=== PATIENT | male | born 1985 | race Hispanic/Latino ===

== ENCOUNTER → 2022-04-20 13:47 | Outpatient (CLI) | payer OTHER, SELFPAY ==
--- NOTE | 2022-04-20 13:52 | DI.ECHO.S_ITS ---
[facility]---------+ [facility] +---------+ : : [address] : : : : [id number] : : : : Phone: [phone]+ Echocardiogram Report + + :Name: KATHY MELTON Study Date: 04/20/2022 Height: 71 in : :[facility] ReadingLocation: Weight: 177 lb : : Gender: Male BSA: 2.0 m2 : :: 1985 Age: 36 yrs BP: 109/71 mmHg: :Reason For Study: CHEST PAIN : :Ordering Physician: TIM, : :YESI Performed By: Jackie Sagastume : :Referring: YESI DUMONT : + + Interpretation Summary The left ventricle is normal in size. Left ventricular systolic function appears normal without focal wall motion abnormalities. The ejection fraction is estimated to be 55-60%. Diastolic parameters suggest probable normal left ventricular diastolic function and normal filling pressures. The right ventricle is normal in size and function. Pulmonary artery pressures cannot be estimated because of the lack of a measurable TR jet velocity. The left atrial size is normal. Right atrial size is normal. There is no significant valvular heart disease. The aortic root is normal size. Procedure: A two-dimensional transthoracic echocardiogram with color flow and Doppler was performed. The study quality was technically adequate. There is no prior echocardiogram noted for this patient. The patient was in sinus rhythm with heart rates between 65-80 bpm during the exam. Left Ventricle: The left ventricle is normal in size. There is normal left ventricular wall thickness. Left ventricular systolic function appears normal without focal wall motion abnormalities. The ejection fraction is estimated to be 55-60%. Diastolic parameters suggest probable normal left ventricular diastolic function and normal filling pressures. Right Ventricle: The right ventricle is normal in size and function. Atria: The left atrial size is normal. Right atrial size is normal. There is no Doppler evidence for an interatrial shunt. Mitral Valve: The mitral valve is normal in structure and function. There is no mitral regurgitation noted. Aortic Valve: The aortic valve is trileaflet. The aortic valve opens well. There is no aortic valve stenosis. No aortic regurgitation is present. Tricuspid Valve: The tricuspid valve is normal in structure and function. There is trace tricuspid regurgitation. Pulmonary artery pressures cannot be estimated because of the lack of a measurable TR jet velocity. Pulmonic Valve: The pulmonic valve leaflets are thin and pliable; valve motion is normal. There is no pulmonic valvular regurgitation. There is no significant valvular heart disease. Great Vessels: The aortic root is normal size. The dimensions of the ascending aorta are normal. The IVC is of normal diameter and collapses greater than 50% with a sniff. This suggests a low right atrial pressure of 3 mm Hg. Pericardium/ Pleura There is no pericardial effusion. There is no pleural effusion. MMode/2D Measurements & Calculations LVIDd: 5.6 cm LVOT diam: 2.0 cm LVIDs: 3.8 cm Ao root diam: 2.9 cm FS: 30.9 % asc Aorta Diam: 2.8 cm IVSd: 0.68 cm Ao Arch Diam (Prox Trans): 2.5 cm LVPWd: 0.66 cm LV murray. diameter/BSA (cm/m^2): 2.8 LV sys. diameter/BSA (cm/m^2): 1.9 LA A2 area: 16.8 cm2 RA long axis: 4.6 cm LA A4 area: 15.3 cm2 RA area: 13.6 cm2 LA length (vol): 4.8 cm RA vol: 34.5 ml LA vol: 45.3 ml RA : 17.2 ml/m2 LA vol index: 22.6 ml/m2 IVC diam: 1.5 cm RVD1 (basal): 3.5 cm RVD2 (mid): 2.7 cm TAPSE: 1.7 cm Doppler Measurements & Calculations Ao V2 max: 114.7 cm/sec LVOT Max Rishi: 91.9 cm/sec Ao V2 mean: 82.0 cm/sec LV V1 max P.4 mmHg Ao max P.3 mmHg LV V1 VTI: 18.7 cm Ao mean P.0 mmHg FAUZIA(I,D): 2.4 cm2 Ao V2 VTI: 23.4 cm FAUZIA(V,D): 2.4 cm2 sev ratio: 0.80 FAUZIA indexed to BSA (cm^2/m^2): 1.2 MV E max rishi: 71.8 cm/sec PA V2 max: 81.2 cm/sec MV A max rishi: 47.7 cm/sec PA V2 mean: 52.4 cm/sec MV E/A: 1.5 PA mean P.3 mmHg Med Peak E' Rishi: 13.1 cm/sec PA pr(Accel): 37.9 mmHg E/E' med: 5.5 Lat Peak E' Rishi: 18.0 cm/sec E/E' lat: 4.0 E/e' average: 4.7 MV dec time: 0.25 sec SV(LVOT): 56.8 ml Reading Physician:04:17 PM
--- NOTE | 2022-04-20 13:56 | DI.NM.S_ITS ---
PROCEDURE: NM EXERCISE TREADMILL NON NUC COMPARISON: None. INDICATIONS: Chest pain, unspecified FINDINGS: Rest ECG sinus rhythm. Bharat protocol 13:30, maximum heart rate 181 bpm (97% peak predicted), maximum blood pressure 152/60, 14.8 METS, WES 0%. Stress ECG sinus tachycardia, no ST segment changes or arrhythmias; isolated PVC with recovery. The patient complained of baseline left-sided chest pain that did not change with exercise. IMPRESSION: Low risk study. No evidence of exercise-induced ischemia or arrhythmia. Normal hemodynamic response to exercise. Average exercise capacity. Dictated by: Makayla Felix D.O. on 04/20/2022 at 16:20 Approved by: Makayla Felix D.O. on 04/20/2022 at 16:22
== END ==
PROVIDERS: Referring Provider Physician Assistant; Visit Provider Physician Assistant
DX: R07.9 Chest pain, unspecified (principal)
CPT/HCPCS: 93017; 93306

== ENCOUNTER → 2022-09-09 07:43 | Outpatient (CLI) | payer OTHER, SELFPAY ==
--- NOTE | 2022-09-09 | DI.MRI.S_ITS ---
PROCEDURE: MR HEAD/BRAIN WO/W CON INDICATIONS: Other hallucinations TECHNIQUE: Noncontrast axial T1 spin echo, axial T2 fast spin echo, sagittal and axial FLAIR, coronal T2 fast spin echo, axial gradient echo, axial diffusion and ADC through the brain. After the administration of contrast, axial and coronal and sagittal 3D VIBE or T1 spin echo with fat saturation through the brain. COMPARISON: None. FINDINGS: Image quality: Excellent. CSF Spaces: Basal cisterns are patent. No extra-axial fluid collections. Ventricles are normal in size and shape. Brain: No midline shift. No intracranial bleeds or masses. No abnormal intracranial enhancement. The brainstem appears normal. Diffusion-weighted images demonstrate no acute ischemic insults. No chronic ischemic insults. Normal intravascular flow voids are present. Skull and face: Calvarial marrow is normal in signal. Orbits appear normal. Sinuses: Sinuses and mastoids appear clear. IMPRESSION: Normal MRI of the brain with and without contrast Approved by: Alexis Pearson M.D. on 09/09/2022 at 16:27
== END ==
PROVIDERS: PCP Physician Assistant; Referring Provider Physician Assistant; Visit Provider Physician Assistant
DX: R44.2 Other hallucinations (principal)
CPT/HCPCS: 70553

== ENCOUNTER → 2022-12-22 19:39 | Outpatient (CLI) | payer OTHER, SELFPAY ==
--- NOTE | 2022-12-22 | DI.MRI.S_ITS ---
PROCEDURE: MR ANKLE RT WO CON INDICATIONS: pain in rt ankle TECHNIQUE: Noncontrast sagittal T1 spin echo and T2 fast spin echo with fat saturation, axial proton density fast spin echo and T2 fast spin echo with fat saturation, coronal T1 spin echo and T2 fast spin echo with fat saturation through the ankle/hindfoot. COMPARISON: None. FINDINGS: Image quality: Excellent. Bones and joints: No bone marrow contusions or fractures. No hindfoot coalitions. No osteochondral injuries of the talar dome. Mild spurring is seen at the dorsal talonavicular joint. Medial structures: The deep and superficial layers of the deltoid ligament appear intact. The spring ligament components are intact. The posterior tibialis, flexor digitorum longus, and flexor hallucis longus tendons are intact. The posterior tibial neurovascular bundle appears normal within the tarsal tunnel, without extrinsic mass effect. Lateral structures: The anterior talofibular, calcaneofibular, and posterior talofibular ligaments appear intact. The anterior and posterior tibiofibular ligaments appear intact. The peroneus longus and brevis tendons demonstrate normal location and morphology. Partial effacement of the normal fat signal in sinus tarsi is seen with thickening of the cervical ligament and the roots of the inferior extensor retinaculum. Anterior structures: The tibialis anterior, extensor hallucis longus, and extensor digitorum longus tendons appear intact. The dorsal talonavicular ligament appears mildly heterogeneous laterally. Posterior and plantar structures: Achilles tendon is intact. The proximal plantar fascia is intact. No abductor digiti quinti muscle atrophy to suggest Brar neuropathy. IMPRESSION: 1. Partial effacement of the sinus tarsi fat and mild thickening of the lateral sinus tarsi ligaments including the roots of the inferior extensor retinaculum, which is suspicious for ligamentous sprain. 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 2. Low-grade sprain of the dorsal talonavicular ligament. Mild chronic osseous spurring is seen at the dorsal talonavicular joint. Approved by: Curt Andersen M.D. on 12/23/2022 at 9:56
== END ==
PROVIDERS: PCP Physician Assistant; Referring Provider Physician Assistant; Visit Provider Physician Assistant
DX: M25.571 Pain in right ankle and joints of right foot (principal); S93.491A Sprain of other ligament of right ankle, initial encounter; M77.8 Other enthesopathies, not elsewhere classified
CPT/HCPCS: 73721

== ENCOUNTER → 2023-01-06 15:54 | Outpatient (CLI) | payer OTHER, SELFPAY ==
--- NOTE | 2023-01-06 | DI.MRI.S_ITS ---
PROCEDURE: MR CERVICAL SPINE WO CON INDICATIONS: Spinal stenosis, cervical region TECHNIQUE: Noncontrast sagittal T1 spin echo and T2 fast spin echo, sagittal STIR, foraminal oblique sagittal T2 fast spin echo, and axial gradient echo or T2 fast spin echo through the cervical spine. COMPARISON: None. FINDINGS: Image quality: Excellent. Alignment and Curvature: There is normal bony alignment. Bone Marrow: Marrow demonstrates normal overall signal. Spinal Cord: Visualized spinal cord has normal size and signal. No cerebellar tonsillar herniation. Paraspinous Soft Tissues: No paravertebral masses. Prevertebral soft tissues are normal in thickness. C2-C3: Mild disc desiccation. Mild disc bulge. Mild bilateral foraminal stenosis. No canal stenosis. C3-C4: Mild disc desiccation and height loss. Broad-based disc bulge. Effacement of the CSF space with moderate canal stenosis. Severe bilateral foraminal stenosis. C4-C5: Moderate disc desiccation and height loss. Posterior disc bulge. Severe canal stenosis. Severe foraminal stenosis. Flattening of the anterior aspect of the cord. No cord signal abnormality. C5-C6: Moderate disc desiccation and height loss. Broad-based disc bulge. Effacement of the CSF space with severe canal stenosis. Severe bilateral foraminal stenosis. Flattening of the anterior aspect of the cord without cord signal abnormality. C6-C7: Moderate disc desiccation and height loss. Broad-based disc bulge. Mild canal stenosis. Moderate right and severe left foraminal stenosis. C7-T1: Mild disc desiccation and height loss. Mild disc bulge. No canal stenosis. Moderate right and mild left foraminal stenosis. IMPRESSION: 1. Multilevel disc desiccation, height loss, and broad-based disc bulges with resultant severe canal stenosis at C4-5 and C5-6 and mild canal stenosis at C6-7. 2. Severe bilateral foraminal stenosis at C3-4, C4-5, C5-6, and on the left at C6-7. 3. Moderate right foraminal stenosis at C6-7 and C7-T1. 4. Multilevel flattening of the anterior aspect of the cord secondary to disc bulges and canal stenosis. No abnormal cord signal. Dictated by: Nika Bach M.D. on 01/06/2023 at 17:41 Approved by: Nika Bach M.D. on 01/06/2023 at 17:54
== END ==
PROVIDERS: PCP Physician Assistant; Referring Provider Physical Medicine & Rehabilitation Pain Medicine; Visit Provider Physical Medicine & Rehabilitation Pain Medicine
DX: M48.02 Spinal stenosis, cervical region (principal); M50.31 Other cervical disc degeneration, high cervical region
CPT/HCPCS: 72141

== ENCOUNTER 2023-07-11 08:20 | Inpatient (IN) | payer OTHER, SELFPAY ==
[2023-06-29 13:55] VITALS: BMI 31.5
[2023-07-11] VITALS (12 sets, daily range): BP systolic 116–138; BP diastolic 60–87; PULSE 68–91; RESP 12–18; TEMP 36.2–37.4; O2SAT 90–98; BMI 30.8
[2023-07-11] MEDS: LACTATED RINGERS 1,000 ML 42 ML IV ×2 (09:11→11:22)
--- NOTE | 2023-07-11 09:39 | PM.PREOP ---
Pre-operative Note Interval Note History & Physical reviewed/Exam performed by Physician: Yes Changes to H&P: No
[2023-07-11] MEDS: CEFAZOLIN 2 GM/100 ML PREMIX 100 ML IV ×3 (10:18→23:51)
--- NOTE | 2023-07-11 10:36 | SUR.OPER ---
Supine, head on gel donut. Arms padded with gel pads, tucked at sides, towel roll under shoulders. Safety belt at thigh. Legs uncrossed.
[2023-07-11] MEDS: BUPIVACAINE 0.25% (PF) 10 ML, EPINEPHrine 0.15 MG INJ (12:20)
--- NOTE | 2023-07-11 12:28 | DI.RAD.S_ITS ---
PROCEDURE: XR CERVICAL SPINE 2V OR 3V INDICATIONS: C5-6, C6-7 ACDF TECHNIQUE: 3 view(s) of the cervical spine were acquired. COMPARISON: None. FINDINGS: ACDF C5-C7. Endotracheal tube. IMPRESSION: Intraoperative guidance provided. Dictated by: Esteban García M.D. on 07/11/2023 at 13:46 Approved by: Esteban García M.D. on 07/11/2023 at 13:47
--- NOTE | 2023-07-11 12:29 | PM.OP.1 ---
Operative Date/Time/Diagnoses Date of procedure: 07/11/23 Time of procedure: 10:00 Pre-op diagnosis: 1. C5-6, C6-7 spinal stenosis 2. Cervical radiculopathy Post-op diagnosis: same Procedure & Clinicians Procedure: 1. C5-6 C6-7 anterior cervical diskectomy and fusion 2. C5-6 C6-7 anterior interbody cage placement 3. C5-6 C6-7 anterior instrumentation with plate and screw placement in C5-C6 and C7 vertebrae 4. Utilization of microsurgical technique and operating microscope Same procedure as scheduled: Yes Indications: Patient has been having chronic neck pain and worsening cervical radiculopathy. Patient was found to have significant cervical spinal stenosis at C5-6 C6-7 level correlating with patient's symptoms. Patient failed multiple conservative management with worsening pain weakness and numbness in his upper extremity. Patient has been having difficulty performing activity of daily living. After discussing risks benefits of treatment options, patient elected proceed with surgery. Surgeon: Maryellen Valles [employer] Supervisor: Maria De Jesus Deras Yes if Unassisted: No Anesthesia Type: General Operative Notes Closure Type: primary Specimen(s): none sent Prosthetic devices, grafts, tissues, transplants, or devices: Globus Extend Plate, Hedron C cages Estimated Blood Loss (mL): 5 Blood products transfused: none Procedure in detail: Patient was seen in the preoperative area. Risks and benefits of the surgery was discussed with the patient. Operative consent was obtained and placed in the chart. Patient was then taken to the operative room. Prophylactic antibiotic was given less than 0.5 hr prior to skin incision. General anesthesia was administered. Patient was placed into a supine position on her radiolucent table. Bilateral shoulders were taped down to allow proper C-arm imaging. Anterior cervical area was prepped and draped in a sterile fashion. Time-out was performed at this time. Using lateral C-arm imaging, the level between C5 and C7 was identified and marked on patient's neck. A oblique incision from midline towards medial border of sternocleidomastoid muscle was made. The platysma muscle was incised in line with skin incision. Metzenbaum scissor was used to develop the plane between the medial border of sternocleidomastoid d and the strap muscles medially. The carotid sheath and its contents were identified and protected behind the hand-held retractor during the entire case. The plane between the carotid sheath and strap muscles was developed with Metzenbaum scissors. Dissection was made down to the level of the anterior cervical fascia. Longus colli muscle was incised on the anterior aspect of vertebral bodies bilaterally from C5-C7. Spinal needle was placed into the C5-6 disc space and confirmed with lateral C-arm imaging. Using microsurgical technique and operative microscope, anterior cervical diskectomy was performed at C5-6 and C6-7 level. This was done by removing the disc material, removing the anterior and posterior osteophytes posterior longitudinal ligaments along with performing bilateral foraminotomies at both levels. Patient was found to have severe central and foraminal stenosis at both levels. Patient's stenosis was fully decompressed after decompression was completed. After the diskectomy was completed, 2 anterior interbody cages were obtained. The cages were packed with DBM bone grafting material. One cage each along with the bone grafting material was then packed into the interbody spaces from C5-C7 with one cage into each interbody level. After the cages were placed, the anterior cervical plate was stabilized to the C5-C7 vertebrae using 2 screws at each each level. Total 6 screws were placed. After confirming placement of the hardware with AP and lateral C-arm imaging, the screws were locked into the plate using the locking mechanism and torque limiting screwdriver. After the hardware was placed and confirmed with AP and lateral C-arm imaging, the wound was irrigated with sterile normal saline. The platysma muscle and the subcutaneous tissue was closed with 2-0 Vicryl. The skin was closed with 4-0 Monocryl and Steri-Strips. Patient tolerated the procedure well. Patient was transferred recovery room in stable condition. There were no complications. The Operation could not have been safely performed without compromising the technical result or length of the procedure, without the assistance of a skilled certified ophthalmic surgical assistant. The certified ophthalmic surgical assistant was medically necessary for proper positioning, retraction and manipulation of instruments, proper exposure, surgical preparation, and manipulation of tissue. Complications: none Post-operative Condition: stable Disposition: PACU Plan for aftercare: Admit to inpatient hospital
[2023-07-11] MEDS: HYDROMORPHONE 1 MG INJ IV ×2 (12:44→12:55)
[2023-07-11] MEDS: hydrOXYzine 50 MG/ML INJ 25 MG IM (12:45)
[2023-07-11] MEDS: fentaNYL 100 MCG/2 ML INJ IV (12:49)
[2023-07-11] MEDS: OXYCODONE IR 5 MG TABLET PO ×3 (12:55→23:51)
[2023-07-11] MEDS: methocarbamoL 500 MG TABLET 750 MG PO (12:56)
[2023-07-11] MEDS: ACETAMINOPHEN 325 MG TABLET 650 MG PO (12:56)
[2023-07-11] MEDS: HYDROMORPHONE 0.5 MG INJ IV (13:55)
[2023-07-11] MEDS: LACTATED RINGERS 1,000 ML 125 ML IV (13:57)
--- NOTE | 2023-07-11 16:21 | OT.IP.EVAL ---
Current Diagnoses Spinal stenosis, cervical region (07/11/23) Radiculopathy, cervical region (07/11/23) Surgery Performed Operation Date: 07/11/23 10:15 Actual Procedures p C5-6, C6-7 ACDF with anterior instrumentation - Maryellen Valles MD Past Medical History (Last Updated 06/29/23 @ 14:45 by Nmeo Velez, RN) Anxiety Cervical radiculopathy Depression History of COVID-19 (~2020) Insomnia MANUELITO on CPAP RLS (restless legs syndrome) Schizoid personality disorder Spinal stenosis, cervical region Surgical History (Last Updated 06/29/23 @ 14:11 by Nemo Velez, RN) History of surgery [place] teeth removed Occupational Therapy Inpatient Evaluation/Re-Eval M1 PT/OT-IP Prior Functional Status Start: 07/11/23 16:19 Freq: NEEDED Status: Active Protocol: Document 07/11/23 16:19 CGR (Rec: 07/11/23 16:27 CGR [id number]) Medical Review Prior Functional Status Medical History Reviewed Yes Communication Pt is an effective verbal communicator. Mobility and Gait Pt was IND at baseline without AD. Activities of Daily Living and IADL's Pt was IND with all ADLs and is active [employer] Social History Household Members family Living Arrangements Apartment/Condo Number of Floors (Floors) One Floor Number of Stairs To Enter/Railing? no steps to enter Home Environment Standard Height Toilet,Tub/ Shower Home Equipment Crutches Employment Status Active Duty Additional Social History Comment Pt states that his brother is living with him and will help if needed. M2 OT-IP Current Condition Start: 07/11/23 16:19 Freq: Status: Active Protocol: Document 07/11/23 16:19 CGR (Rec: 07/11/23 16:27 CGR [id number]) Occupational Therapy Current Condition Current Condition Evaluation Date 07/11/23 Treatment Diagnosis c5-c6 ACDF Diagnosis Onset Date 07/11/23 Post Operative Precautions Cervical Spine Precautions Soft Collar for Comfort,No Heavy Lifting,Log Roll M3 OT- IP Subjective and Pain Start: 07/11/23 16:19 Freq: Status: Active Protocol: Document 07/11/23 16:19 CGR (Rec: 07/11/23 16:27 CGR [id number]) OT- Subjective Occupational Therapy Visit Type Type Initial Evaluation Visit Start Time 15:50 Visit Stop Time 16:21 Notes Pt's GF present throughout session. OT Pain Assessment Pain When Pain Assessed At Rest Pain Present Pain Present Pain Reported Location Neck Intensity 4 Scale Used Numeric (0 - 10) Management Techniques Modification of Treatment,Re- positioning M4 OT- IP ADL's Start: 07/11/23 16:19 Freq: Status: Active Protocol: Document 07/11/23 16:19 CGR (Rec: 07/11/23 16:27 CGR [id number]) OT [id number] Comments OT Self-Feeding Comments not meal time OT ADL-Grooming General Evaluation Grooming Ability Independent Areas Needing Assistance Face Washing Comments OT Grooming Comments standing at sink OT ADL-Oral Care General Eval Oral Care Ability Independent Areas of Assistance Brushing Teeth Comments Oral Care Comments standing a sink OT ADL-Dressing General Eval Lower Body Dressing Ability Independent Areas Needing Assistance Socks OT ADL-Toileting General Evaluation Toileting Ability Independent Comments OT Toileting Comments pt urinated seated on toielt per therapist request given how sleepy pt was. OT ADL-Bathing Comments OT Bathing Comments not performed M5 OT- IP IADL's Start: 07/11/23 16:19 Freq: Status: Active Protocol: Document 07/11/23 16:19 CGR (Rec: 07/11/23 16:27 CGR [id number]) OT-Instrumental Activities of Daily Living Deficits IADL Deficits Identified No Deficits Home Safety Awareness Awareness of Need for Assistance at Home Good Awareness Ability to Problem Solve Emergency Able to Problem Solve Situations Medication Management Medication Management No Deficits Identified Money Management Money Management No Deficits Identified Meal Preparation Meal Preparation No Deficits Identified Sales Enablement Analyst Sales Enablement Analyst No Deficits Identified Driving Driving 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 OT- IP Functional Cognition Start: 07/11/23 16:19 Freq: Status: Active Protocol: Document 07/11/23 16:19 CGR (Rec: 07/11/23 16:27 CGR [id number]) Cognitive Factors Limiting Selfcare Function Cognitive Ability Level of Alertness Alert Patient Orientation Name,Age,Birthday,Month,Date, Year,Day of Week,Place, Situation Attention Span Ability Capable of Focused Attention, Capable of Sustained Attention Ability to Follow Commands Able to Follow Multi-Step Commands OT- Vision and Hearing OT- Hearing Assessment OT- Hearing Assessment WFL OT- Vision Assessment Visual Attentiveness WFL Occular Pursuits WFL Visual Convergence WFL M7 OT- IP Mobility and Balance Start: 07/11/23 16:19 Freq: Status: Active Protocol: Document 07/11/23 16:19 CGR (Rec: 07/11/23 16:27 CGR [id number]) OT- Bed Mobility Assessment Rolling Type of Rolling Log Rolling,Roll to Left Level of Assistance Independent Supine to Sit Supine to Sit Assist Independent Scooting Scooting to Edge of Bed Independent OT-Transfer Assessment Sit to and From Stand Sit to and from Stand Independent Transfers Transfer Ability Independent Technique Transfer Destination Bed,Chair,Toilet Transfer Technique Stand Step Pivot Devices Transfer Assistive Devices None OT- Balance Assessment Sitting Balance and Reactions Static Sitting Balance Ability Normal Dynamic Sitting Balance Ability Normal M8 OT- IP Objective Assessments Start: 07/11/23 16:19 Freq: Status: Active Protocol: Document 07/11/23 16:19 CGR (Rec: 07/11/23 16:27 CGR [id number]) OT Gross Range of Motion Upper Extremity Range of Motion Assessment Within Functional Limits OT Strength Upper Extremity Strength Assessment Within Functional Limits OT- Coordination Assessment Upper Extremity Finger to Nose Test Within Functional Limits Finger Tapping Test Within Functional Limits OT-Muscle Tone Assessment Muscle Tone WNL Yes OT Sensation Assessment Edema Edema Absent M9 OT- IP Assessment and Plan Start: 07/11/23 16:19 Freq: Status: Active Protocol: Document 07/11/23 16:19 CGR (Rec: 07/11/23 16:27 CGR [id number]) OT Summary Assessment and Plan Potential Rehabilitation Potential Excellent Analytic Complexity at Evaluation Low Summary OT Impairments Pain Progress Towards Goals Safe For Discharge,Goals Met Assessment Summary Pt presents as a low complexity evaluation s/p admit for ACDF. Pt participated with OT and is performing ADLs at baseline level of IND. No further OT needs. Recommend d/c home. Frequency of Treatment Frequency Of Treatment Discharge Discharge Recommendations OT Discharge Recommendations Home Transportation Needs at Discharge Private Vehicle
[2023-07-11] MEDS: SENNOSIDES 8.6 MG TABLET 17.2 MG PO (21:06)
[2023-07-11] MEDS: DOCUSATE 100 MG CAPSULE PO (21:06)
[2023-07-12 00:40] VITALS: BP 121/79; PULSE 85; RESP 18; TEMP 37.1; O2SAT 95
[2023-07-12 05:25] VITALS: BP 124/76; PULSE 74; RESP 18; TEMP 37.4; O2SAT 95
[2023-07-12] MEDS: OXYCODONE IR 5 MG TABLET PO ×2 (07:00→09:55)
--- NOTE | 2023-07-12 07:41 | P.DS_ITS ---
History of Present Illness History of Present Illness Date Patient Seen: 07/12/23 Time Patient Seen: 07:41 Chief complaint: Neck pain Narrative: Patient states his pain is hxvi-an-fnyopvoa. He worked with physical therapy yesterday evening. He has assistance at home. No difficulty swallowing. He has been up out of bed. Otherwise without complaints. Discharge Providers Provider Date of admission: 07/11/23 08:20 Discharge Date: 07/12/23 Primary care physician: Kaushal Reyes PA-C Consults: 07/11/23 13:21 Consult to Occupational Therapy Evaluate & Treat Comment: Physician Instructions: Evaluate and treat Consult to Physical Therapy Evaluate & Treat Comment: Physician Instructions: Evaluate and Treat Discharge provider: Adam Bennett PA-C Summary Hospital Course Discharge Diagnosis: 1. C5-6, C6-7 spinal stenosis 2. Cervical radiculopathy Hospital Course: 1. C5-6 C6-7 anterior cervical diskectomy and fusion 2. C5-6 C6-7 anterior interbody cage placement 3. C5-6 C6-7 anterior instrumentation with plate and screw placement in C5-C6 and C7 vertebrae 4. Utilization of microsurgical technique and operating microscope Same procedure as scheduled: Yes Indications: Patient has been having chronic neck pain and worsening cervical radiculopathy. Patient was found to have significant cervical spinal stenosis at C5-6 C6-7 level correlating with patient's symptoms. Patient failed multiple conservative management with worsening pain weakness and numbness in his upper extremity. Patient has been having difficulty performing activity of daily living. After discussing risks benefits of treatment options, patient elected proceed with surgery. Surgeon: Maryellen Valles Thread Spinner: Maria De Jesus Soto Click Yes if Unassisted: No Anesthesia Type: General Operative Notes Closure Type: primary Specimen(s): none sent Prosthetic devices, grafts, tissues, transplants, or devices: Globus Extend Plate, Hedron C cages Estimated Blood Loss (mL): 5 Blood products transfused: none Patient admitted to the hospital for the above-mentioned procedure. Patient consented to the same. Patient underwent C5-C6 C6-C7 fusion July 11, 2023. Patient worked with physical therapy yesterday evening. Patient has assistance at home. Patient will be discharged home today in stable condition. Multimodal pain management, soft collar for comfort, keep dressing clean and dry. Exam Vital Signs (past 8 hours): - 07/12/23 00:40 07/12/23 05:25 Temperature 98.8 F 99.3 F Pulse Rate 85 74 Respiratory Rate 18 18 Blood Pressure 121/79 124/76 Pulse Oximetry 95 95 Oxygen Flow Rate 0 0 Oxygen Delivery Method CPAP Oxygen Flow Rate 0 Narrative Exam Narrative: Pleasant 37-year-old male who walking in room in no apparent distress. Collar is in place. Dressing clean, dry and intact. Motor functions intact with good strength bilaterally. Sensation grossly intact to light touch bilateral upper extremities. Const General: cooperative and comfortable Nutritional Appearance: average body habitus Orientation: alert Resp Effort & Inspection: normal respiratory effort and able to speak in complete sentences [facility] Medical History (Updated 06/29/23 @ 14:45 by Nemo Velez RN) Schizoid personality disorder History of COVID-19 (~2020) Insomnia Anxiety Depression MANUELITO on CPAP RLS (restless legs syndrome) Cervical radiculopathy Spinal stenosis, cervical region Surgical History (Updated 06/29/23 @ 14:11 by Nemo Velez RN) [place] teeth removed History of surgery Social History household members: family Smoking Status: Former smoker alcohol intake: former Discharge Assessment & Plan Assessment and Plan Assessment: Patient progressing as expected Plan of Treatment: Multimodal pain management Soft collar for comfort Keep dressing clean and dry Limit bending, twisting, lifting Discharge home today in stable condition Discharge Plan Discharge Plan Patient Disposition: Home Discharge orders & Medications Prescriptions: New acetaminophen 325 mg Tablet 650 mg PO Q6H PRN (Reason: Fever/Mild Pain (1-3)) Qty: 60 0RF oxycodone 5 mg Tablet 5 mg PO Q3H PRN (Reason: Pain, Moderate (4-6)) Qty: 30 0RF Continued fluoxetine [Prozac] 40 mg Capsule 40 mg PO DAILY sildenafil 50 mg Tablet 50 mg PO DAILY PRN (Reason: Sexual Activity) Rx Instructions: administer 30 minutes to 4 hours before activity Follow up/Referrals: Kaushal Reyes PA-C [Primary Care Provider] - Maryellen Valles MD [Physician] - 07/27/23 3:10 pm (Follow up w/ Adam Bennett PA-C, at [facility] office in [place].) Diet/Activity/Treatments Diet: Diet as Tolerated Diet comment: Start with soft foods that are easy to swallow. Activity: Soft collar is for comfort only; you do not need to wear it. Many people feel more comfortable wearing it when they are sitting or standing for long periods of time; some people feel more comfortable wearing it while sleeping. No lifting more than 10 pounds. Cold/Heat Therapy: Heating pad to back of neck/between shoulder blades as needed for pain. Skin/Wound/Dressing Care Report to your healthcare provider any signs of infection, such as:: chills, fever, night sweats, unusual drainage and unusual redness Dressing: May shower. If dressing becomes wet inside, remove but leave steri strips in place until follow up in office. Visit Report/Discharge Packet Instructions: DI for Prescription Opioid Use, DI for Anterior Cervical Discectomy and Fusion Stand Alone Forms: Patient Portal/API, Stroke Signs & Symptoms, Surgery Discharge Discharge Data Primary Care Provider: Kaushal Reyes VTE Deep Vein Thrombosis/Pulmonary Embolism Present on Admission: No
[2023-07-12 07:57] VITALS: BP 125/80; PULSE 69; RESP 18; TEMP 37.1; O2SAT 97
[2023-07-12] MEDS: FLUoxetine 20 MG CAPSULE 40 MG PO (08:16)
--- NOTE | 2023-07-12 09:20 | PT.IIE ---
Current Diagnoses Spinal stenosis, cervical region (07/11/23) Radiculopathy, cervical region (07/11/23) Surgery Performed Operation Date: 07/11/23 10:15 Actual Procedures p C5-6, C6-7 ACDF with anterior instrumentation - Mrayellen Valles MD Surgical History (Last Updated 06/29/23 @ 14:11 by Nemo Velez, RN) History of surgery [place] teeth removed Medical History (Last Updated 06/29/23 @ 14:45 by Nemo Velez RN) Anxiety Cervical radiculopathy Depression History of COVID-19 (~2020) Insomnia MANUELITO on CPAP RLS (restless legs syndrome) Schizoid personality disorder Spinal stenosis, cervical region Physical Therapy Inpatient Evaluation/Re-Eval M1 PT/OT-IP Prior Functional Status Start: 07/11/23 16:19 Freq: NEEDED Status: Discharge Protocol: Document 07/11/23 16:19 CGR (Rec: 07/11/23 16:27 CGR [id number]) Medical Review Prior Functional Status Medical History Reviewed Yes Communication Pt is an effective verbal communicator. Mobility and Gait Pt was IND at baseline without AD. Activities of Daily Living and IADL's Pt was IND with all ADLs and is active duty [email or web address] Social History Household Members family Living Arrangements Apartment/Condo Number of Floors (Floors) One Floor Number of Stairs To Enter/Railing? no steps to enter Home Environment Standard Height Toilet,Tub/ Shower Home Equipment Crutches Employment Status Active Duty Additional Social History Comment Pt states that his brother is living with him and will help if needed. M1 PT/OT-IP Prior Functional Status Start: 07/12/23 13:23 Freq: NEEDED Status: Active Protocol: Document 07/12/23 09:20 AB (Rec: 07/12/23 13:32 AB [id number]) Medical Review Prior Functional Status Communication able to make needs known Mobility and Gait pt stated that he was independent with all mobilities and ambulation without AD Activities of Daily Living and IADL's Per OT note: Pt was IND with all ADLs and is active duty [email or web address] Social History Household Members family Living Arrangements Apartment/Condo Number of Floors (Floors) One Floor Number of Stairs To Enter/Railing? 1 step to enter the house Home Environment Standard Height Toilet,Tub/ Shower Home Equipment Crutches,Grab Bars In Shower Employment Status Active Duty Additional Social History Comment Pt states that his brother is living with him and will help if needed. M2 PT-IP Current Condition Start: 07/12/23 13:23 Freq: NEEDED Status: Active Protocol: Document 07/12/23 09:20 AB (Rec: 07/12/23 13:32 AB [id number]) Physical Therapy Current Condition Current Condition Evaluation Date 07/12/23 Treatment Diagnosis s/p C5-6, C6-7 ACDF; difficulty in walking Onset Date 07/11/23 M3 PT-IP Subjective Start: 07/12/23 13:23 Freq: NEEDED Status: Active Protocol: Document 07/12/23 09:20 AB (Rec: 07/12/23 13:32 AB [id number]) Subjective Physical Therapy Visit Type Type Initial Evaluation Visit Start Time 09:20 Visit Stop Time 09:45 Number of SCABBLER Visits 0 Physical Therapy Visit Comments Patient Comments agreeable to do PT Therapy Pain Assessment Pain When Pain Assessed At Rest Pain Present Pain Present Pain Reported Location Neck Intensity 1 Scale Used increases to 6/10 with mobility Pain Management Techniques Distraction,Modification of Treatment,Re-positioning, Timing of Activity with Medications M4 PT-IP Mobility and Gait Start: 07/12/23 13:23 Freq: NEEDED Status: Active Protocol: Document 07/12/23 09:20 AB (Rec: 07/12/23 13:32 AB [id number]) PT-Bed Mobility Assessment Rolling Type of Rolling Log Rolling Level of Assist Standby Assistance Supine to Sit Supine to Sit Standby Assistance Sit to Supine Sit to Supine Standby Assistance PT-Transfer Assessment Sit to and From Stand Sit to and from Stand Standby Assistance Equipment Transfer Assistive Device None,Gait Belt Orthotic/Prosthetic Devices or Brace: Yes Transfers Transfer Destination Chair Transfer Technique ambulated Transfer Ability Level of Assist Independent Comments Mobility Comments pt supine in bed. pt's GF in room. obtained PLOF and home set up from pt. pt able to recall his cervical precautions. completed log roll supine supine to sit SBA. sit to stand SBA and ambulated in room without AD SBA. stand by sink and educated on soft collar management. pt able to don/ doff soft collar by himself. pt agreed to ambulate out in the hallway and completed ~ 250 ft without AD SBA. pt completed up/down platform step without AD SBA. repeated x 2 sets. pt ambulated back to his room without AD SBA. sat on the chair. call light and table placed within reach. pt without further concerns. Gait Assessment Gait Gait Assistance Required: Standby Assistance Distance (Feet) 250 Able to Maintain Weight Bearing Status Yes During Gait Assistive Devices Assistive Device None,Gait Belt Orthotic/Prosthetic Devices or Brace: Yes Gait Deviations General Gait Pattern Decreased Stride Length, Decreased Feet Clearance Factors Limiting Gait Function Factors Limiting Gait Function Decreased Activity Tolerance, Decreased Strength,Limited Range of Motion,Pain,Poor Balance,Poor Safety Awareness Stair Climbing Assessment Evaluation Level of Assist On Stairs Standby Assistance Devices Stair Climbing Assistive Devices None Technique/Endurance Stair Climbing Direction Ascend and Descend Stair Climbing Technique Step to Step Number of Steps Climbed 1 Query Text: Stair Climbing Set # Repetitions (reps) 2 PT-Balance Assessment Sitting Balance and Reactions Static Sitting Balance Ability Normal Dynamic Sitting Balance Ability Normal Standing Balance and Reactions Static Standing Balance Ability Good Dynamic Standing Balance Ability Good Device Used without AD M5 PT-IP Objective Assessments Start: 07/12/23 13:23 Freq: NEEDED Status: Active Protocol: Document 07/12/23 09:20 AB (Rec: 07/12/23 13:32 AB [id number]) Orientation Orientation/Cognition Level of Alertness Alert Orientation Name,Age,Birthday,Month,Date, Year,Day of Week,Place, Situation Language Function Ability No Deficits Noted Safety Awareness Understands Safety Issues Memory Description No Deficits Noted Gross Range of Motion Lower Extremity ROM Assessment Within Functional Limits Strength Lower Extremity Strength Assessment Within Functional Limits Muscle Tone Muscle Tone WNL Yes M6 PT-IP Treatment Start: 07/12/23 13:23 Freq: NEEDED Status: Active Protocol: Document 07/12/23 09:20 AB (Rec: 07/12/23 13:32 AB [id number]) Physical Therapy Treatment Education Education Provided Precautions,Weight Bearing Status,Safety M7 PT-IP Assessment and Plan Start: 07/12/23 13:23 Freq: NEEDED Status: Active Protocol: Document 07/12/23 09:20 AB (Rec: 07/12/23 13:32 AB [id number]) PT Summary Assessment and Plan Potential Rehabilitation Potential Good Status of Condition at Evaluation Stable Summary Impairments Pain,ROM,Strength,Balance, Coordination,Bed Mobility, Transfers,Gait,Activity Tolerance Assessment Summary pt is a 37 y/o M s/p C 5-6, 6- 7 ACDF POD 1. pt has cervical precautions. pt requiring SBA with mobility and plans to go home with his brother to assist him if needed. pt may go home when medically stable. Goals Bed Mobility Goal Independent Transfer Goal Independent Gait Goal Independent Gait Distance 300 Other Goals up/down 1 step without AD mod I Days to Meet Goals 5 Frequency of Treatment Frequency Of Treatment Twice a Day Treatment Plan Physical Therapy Treatment Plan Bed Mobility Training,Transfer Training,Gait Training, Therapeutic Exercise,Balance Retraining,Post Op Education, Discharge Planning,Hot or Cold Pack,Neuromuscular Re-ed, Coordination Retraining,Manual Therapy Precautions Cervical Spine Precautions Soft Collar for Comfort,No Heavy Lifting,Log Roll Recommendations To Nursing Amount of Assist Needed Standby Assistance Discharge Recommendations PT Discharge Recommendations Home with Assistance Transportation Needs at Discharge Private Vehicle
[2023-07-12] MEDS: DOCUSATE 100 MG CAPSULE PO (09:56)
--- NOTE | 2023-07-12 10:44 | PC.NURSE ---
Patient is A&OX4, VSS, afebrile on RA. The dressing on his anterior neck is C/D/I covered with soft collar. He reports pain level is tolerable with prn oxycodone and tylenol. He is cleared for discharge today by PA and PT. He verbalizes understanding of discharge medications,activity, site care, s.sx of infection as well as the follow up appointment post op with MD SIMS. He is escorted by RN to private vehicle with his significant other this a.m. at 1015. They have all of their personal belongings including CPAP machine.
--- NOTE | 2023-07-12 13:32 | CM.DANOTE ---
Brief DCP Assessment Note Pt is a 37yo M POD1 following cervical surg with Dr. Valles on 07.11.23. PCP Kaushal Reyes Paykailash silveira and self pay BOTTOM WHEELER reviewed EMR. Per chart review, pt is active duty. Lives in [place], brother currently living with him. Is active/indep at baseline. Per PT/OT evals, cleared for home. Per RN report, no obvious CM needs. Pt discharged home prior to being seen by this author. Transport with family in [place]. No CM needs identified from chart review. CM team will continue to follow as needed. LEESA Long Discharge Planning/Care Management CM Discharge Assessment Start: 07/12/23 13:30 Freq: Status: Discharge Protocol: Document 07/12/23 13:30 (Rec: 07/12/23 13:32 [id number]) Discharge Planning Assessment Assigned District Wire Chief LEESA Bustamante DPOA/Assigned Designee Name Beckie, partner Contact Information [phone] Advance Directives? No History Provided By Patient Prior Living Arrangements Apartment/Condo Household Members family Comment brother living with pt Type of transporation used prior to Drives own vehicle admit Independent with ADL's Yes Is patient alert and oriented? Yes Barriers to Discharge No Discharge Plan Home Referrals Initiated None needed Whiteboard Updated in Patient Room with No name and ext. # of District Wire Chief Review Status In Process Please Provide Date Initial DC 07/12/23 Assessment Was Performed Next Review Type Continued Stay Review Pre-Anesthesia Assessment Start: 06/29/23 13:55 Freq: Status: Complete Protocol: Document 06/29/23 13:55 [facility] (Rec: 06/29/23 14:29 [facility] [id number]) Pre-Anesthesia Assessment Patient Information Reviewed Via Phone Assessment Diagnostic Results CBC Comment Outside lab scanned Primary Care Provider Larry Hill Seen Specialist in Last 12 Months Yes Specialist Seen Orthopedist Primary Language Nepali Preferred Language Albanian Venue Attendant Required No Comment Speaks japanese very well and understands without need for senior accountant analyst Height 180.34 cm Weight 102.512 kg Body Mass Index (BMI) 31.5 Hearing Ability Normal Visual Assist Magnifying Glass Dentition Type Teeth, Natural Present Barriers to Learning None Hx Anesthesia Reactions No Hx Family Anesthesia Reaction No Hx Malignant Hyperthermia No Hx Blood Transfusions No Anesthesia Review Requested No Clinical Pharmacy Coordinator No alcohol intake former Smoking Status Former smoker Tobacco type cigarettes,e-cigarettes Substance Use Type does not use,marijuana Pain Present Pain Reported Musculoskeletal Symptoms Arthralgias,Joint Pain,Muscle Weakness,Numbness,Radiating Pain into Limb History of Falling (Recent or History of No ) Patient is completely paralyzed or No completely immobile Mental Status Oriented to own ability Is patient on oxygen? No Does patient have PEREZ/SOB No Hx Sleep Apnea Yes CPAP/BIPAP use prescribed and used routinely Will Bring CPAP/BIPAP DOS Yes Currently Taking a Beta Norma No Can You Climb a Flight of Stairs Without Yes SOB Hx Chest Pain No Hx SOB No Hx Syncope or Dizziness No Anti-Coagulant Therapy No Has a Bath Mix Operator No Cardiac Testing No Hx Pacemaker/ICD No Pacemaker Rep Required? No Cardiac Clearance Received Not Applicable Diet Type At Home Regular Dysphagia No Gastrointestinal Symptoms None Bladder Pattern Frequency Urinary Catheter Present No Hx Urinary Self Catheterization No Diabetes No Presence of External or Internal Medical Yes: CPAP Devices Received a COVID vaccine? Yes Received all doses? Yes Marital Status Single Lives With family Current [facility] Significant Other Does the Patient Have Assistance After Yes: GF will assist with care Surgery at [facility] and he lives with brother Patient Discharge Plan Description Return Home Comment Pt advised same day surgery per surgeon Feels Safe in Current Environment Yes Been Physically Hurt or Threatened By a No Person in Current Environment Do you have thoughts of harming yourself None or others? Are you currently considering suicide? No Do you have a plan to hurt yourself or No Plan others? Do You Have Any Spiritual Beliefs That No May Affect Your HC Choices? Do You Have Any Cultural Practices That No May Affect Your HC Choices? Comment Chris Who Can We Speak to About Patient's Care Family, friends Identifying Code for Release of Patient Declines to issue Information Health Care Proxy/Next of Kin Barak (brother) Tina ( mom) Sravani () Health Care Proxy Phone Number Barak:[phone] Tina: [phone] Sravani: Emergency Contact Name Barak Wilder (brother) ( mom) Sravani () Emergency Contact Phone Number Barak:[phone] Tina: [phone] Sravani: PAC Instructions Assistance for 24 hours post- op,Bring CPAP/BIPAP,Durable medical equipment,Medications to take/avoid,Nasal antibiotic ,No ETOH/petroleum product on skin DOS,NPO,Post-op transportation,Pre-surgical wash,Sensory aids,Sturdy shoes /comfortable clothes,Do not bring valuables and remove jewelry
== END 2023-07-12 10:15 | disposition home or self-care (01) | DRG 473 ==
PROVIDERS: Admitting Provider Orthopaedic Surgery Orthopaedic Surgery of the Spine; PCP Physician Assistant; Referring Provider Physical Medicine & Rehabilitation Pain Medicine; Visit Provider Orthopaedic Surgery Orthopaedic Surgery of the Spine
PROC: 0RG20A0 Fusion of 2 or more Cervical Vertebral Joints with Interbody Fusion Device, Anterior Approach, Anterior Column, Open Approach (ICD-10-PCS; principal; 2023-07-11 10:15)
DX: M48.02 Spinal stenosis, cervical region (principal); M54.12 Radiculopathy, cervical region; M79.18 Myalgia, other site; F32.A Depression, unspecified; G47.33 Obstructive sleep apnea (adult) (pediatric)
CPT/HCPCS: 72040; 76000; 97161; 97165; 97530; 97535; C1713; J0171; J0330; J0690; J1100; J1170; J2250; J2405; J2704; J3010; J3410

== ENCOUNTER → 2023-11-08 09:02 | Outpatient (CLI) | payer OTHER, SELFPAY ==
[2023-07-11 14:00] VITALS: BMI 30.8
--- NOTE | 2023-11-08 09:03 | DI.ECHO.S_ITS ---
[facility] : [address] [place] : : [id number] : : Phone: [phone] Echocardiogram Report + :Name: KATHY RUBIN Study Date: 11/08/2023 Height: 71 in : :Hospital ReadingLocation: Weight: 240 lb : : Gender: Male BSA: 2.3 m2 : :: 1985 Age: 38 yrs BP: 137/99 mmHg: :Reason For Study: CHEST PAIN : :Ordering Physician: BETO, : :THALIA Tovar D.O. Performed By: Jackie Sagastume : :Referring: THALIA BHAKTA D.O. : + Interpretation Summary 1) Normal left ventricular thickness, size, wall motion, and systolic function (EF 55-60%). 2) Normal right ventricular size and function. 3) No significant valvular abnormalities. 4) Compared to the Echo done 04/20/2022, no significant change. Procedure: A two-dimensional transthoracic echocardiogram with color flow and Doppler was performed. The study quality was technically adequate. Comparison is made with the echocardiogram of 04/20/2022. The patient was in sinus rhythm with heart rates between 62-76 bpm during the exam. Left Ventricle: The left ventricle is normal in size and wall thickness. The ejection fraction is estimated to be 55-60%. Left ventricular systolic function appears normal without focal wall motion abnormalities. Diastolic parameters suggest probable normal left ventricular diastolic function and normal filling pressures. Right Ventricle: The right ventricle is normal in size and function. Mitral Valve: The mitral valve is normal in structure and function. There is trace mitral regurgitation. Aortic Valve: The aortic valve is trileaflet. The aortic valve opens well. There is no aortic valve stenosis. No aortic regurgitation is present. Tricuspid Valve: The tricuspid valve is normal in structure and function. There is trace tricuspid regurgitation. The right ventricular systolic pressure is estimated to be at least 16 mmHg based on an estimated right atrial pressure of 3 mm Hg. Pulmonic Valve: The pulmonic valve leaflets are thin and pliable; valve motion is normal. There is no pulmonic valvular regurgitation. Great Vessels: The aortic root is normal size. The dimensions of the ascending aorta are normal. The IVC is of normal diameter and collapses greater than 50% with a sniff. This suggests a low right atrial pressure of 3 mm Hg. Pericardium/ Pleura There is no pericardial effusion. There is no pleural effusion. MMode/2D Measurements & Calculations LVIDd: 5.6 cm LVOT diam: 2.1 cm LVIDs: 3.6 cm Ao root diam: 3.0 cm FS: 36.0 % asc Aorta Diam: 3.1 cm IVSd: 0.73 cm Ao Arch Diam (Prox Trans): 2.7 cm LVPWd: 0.64 cm LV murray. diameter/BSA (cm/m^2): 2.5 LV sys. diameter/BSA (cm/m^2): 1.6 LA A2 area: 13.3 cm2 RA long axis: 4.3 cm LA A4 area: 10.4 cm2 RA area: 12.0 cm2 LA length (vol): 4.3 cm RA vol: 28.7 ml LA vol: 27.1 ml RA : 12.6 ml/m2 LA vol index: 11.9 ml/m2 IVC diam: 0.95 cm RVD1 (basal): 3.4 cm TAPSE: 1.7 cm Doppler Measurements & Calculations Ao V2 max: 107.8 cm/sec LVOT Max Rishi: 90.4 cm/sec Ao V2 mean: 81.4 cm/sec LV V1 max P.3 mmHg Ao max P.6 mmHg LV V1 VTI: 15.8 cm Ao mean P.8 mmHg FAUZIA(I,D): 2.4 cm2 Ao V2 VTI: 22.0 cm FAUZIA(V,D): 2.8 cm2 sev ratio: 0.72 FAUZIA indexed to BSA (cm^2/m^2): 1.1 MV E max rishi: 55.8 cm/sec TR max rishi: 177.4 cm/sec MV A max rishi: 40.2 cm/sec TR max P.6 mmHg MV E/A: 1.4 PA V2 max: 81.8 cm/sec Med Peak E' Rishi: 10.2 cm/sec PA V2 mean: 59.0 cm/sec E/E' med: 5.5 PA mean P.5 mmHg Lat Peak E' Rishi: 13.9 cm/sec PA pr(Accel): 37.9 mmHg E/E' lat: 4.0 E/e' average: 4.7 MV dec time: 0.18 sec SV(LVOT): 53.2 ml Reading Physician:12:56 PM
--- NOTE | 2023-11-08 09:58 | DI.RAD.S_ITS ---
PROCEDURE: XR LUMBAR SPINE 2-3V INDICATIONS: CHEST PAIN TECHNIQUE: 3 views of the lumbar spine were acquired. COMPARISON: None. FINDINGS: Bones: 5 jag-hlz-[id number] vertebrae are present. There is normal bony alignment. No vertebral body compression fractures. No suspicious bony lesions. Minimal degenerative endplate changes. Soft tissues: Overlying bowel gas pattern is normal. No suspicious soft tissue calcifications. IMPRESSION: No acute bony abnormality. Minimal spondylosis. Approved by: Curt Andersen M.D. on 11/08/2023 at 12:28
--- NOTE | 2023-11-08 09:59 | DI.RAD.S_ITS ---
PROCEDURE: XR THORACIC SPINE 3V INDICATIONS: CHEST PAIN TECHNIQUE: 3 views of the thoracic spine were acquired. COMPARISON: None. FINDINGS: Bones: No acute fractures or dislocations. No suspicious bony lesions. 12 pairs of ribs are noted, and appear intact where visualized. Lower cervical spine fusion hardware is present. Soft tissues: No paravertebral stripe thickening. IMPRESSION: No acute bony abnormality. Approved by: Curt Andersen M.D. on 11/08/2023 at 12:28
--- NOTE | 2023-11-08 11:05 | EKG_ITS ---
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
[2023-11-08 12:01] LABS: Alanine Aminotransferase 52 IU/L (<50); Albumin 4.3 g/dL (3.5-5.0); Albumin Globulin Ratio 1.6 (1.0-2.8); Alkaline Phosphatase 68 U/L (38-126); Aspartate Aminotransferase 30 IU/L (17-59); Bilirubin Total 0.6 mg/dL (0.2-1.3); Bilirubin Unconjugated 0.1 mg/dL (0.0-1.1); Globulin 2.7 g/dL (1.7-4.1); HEMOLYSIS < 15 (0-50)
== END ==
PROVIDERS: PCP Physician Assistant; Referring Provider Chiropractor; Visit Provider Chiropractor
DX: R07.89 Other chest pain; R00.2 Palpitations; M54.12 Radiculopathy, cervical region; M54.2 Cervicalgia; M47.24 Other spondylosis with radiculopathy, thoracic region; J30.9 Allergic rhinitis, unspecified; M79.18 Myalgia, other site; R79.89 Other specified abnormal findings of blood chemistry; N52.9 Male erectile dysfunction, unspecified; G47.33 Obstructive sleep apnea (adult) (pediatric); M47.816 Spondylosis without myelopathy or radiculopathy, lumbar region; Z98.1 Arthrodesis status
CPT/HCPCS: 36415; 72072; 72100; 80076; 93005; 93306